=== PATIENT | male | born 1980 | race Caucasian/White ===

== ENCOUNTER 2018-10-26 16:36 | Outpatient (CLI) | payer OTHER ==
--- NOTE | 2018-10-27 10:38 | XRAY Report ---
Reason: L HEEL PAIN Procedure Date: 10/26/2018 Accession Number: [id number] / [id number] Procedure: XR - Foot 3 View LT CPT Code: FULL RESULT: EXAM: LEFT FOOT RADIOGRAPHY EXAM DATE: 10/26/2018 04:53 PM. CLINICAL HISTORY: Heel pain since a fall 3 weeks ago. COMPARISON: None. TECHNIQUE: 3 views. FINDINGS: Bones: Evidence of a nondisplaced fracture involving the plantar aspect of the posterior calcaneus. Joints: Normal. No subluxations. Soft Tissues: Normal. No soft tissue swelling. IMPRESSION: Evidence of a nondisplaced fracture involving the plantar aspect of the posterior calcaneus. RADIA
== END 2018-10-26 16:37 | disposition home or self-care (01) ==
LOC: DI 16:36
PROVIDERS: ATTEND Internal Medicine
DX: S92.002A Unspecified fracture of left calcaneus, initial encounter for closed fracture (principal)

== ENCOUNTER 2020-01-15 19:13 | Outpatient (CLI) | payer OTHER ==
--- NOTE | 2020-01-15 19:55 | XRAY Report ---
PROCEDURE: Foot 3 View LT INDICATIONS: L FOOT PX, DORSAL ASPECT TECHNIQUE: 3 views of the foot were acquired. COMPARISON: None FINDINGS: Bones: No fractures or dislocations. No suspicious bony lesions. Soft tissues: No tibiotalar joint effusion. Achilles tendon appears normal. IMPRESSION: No acute left foot fracture or dislocation. Reviewed by: Wes Ricks MD on 01/15/2020 7:53 PM PST Approved by: Wes Ricks MD on 01/15/2020 7:53 PM PST Station ID: [id number]
== END 2020-01-15 19:14 | disposition home or self-care (01) ==
LOC: DI 19:13
PROVIDERS: ATTEND Internal Medicine
DX: M79.672 Pain in left foot (principal)

== ENCOUNTER 2022-07-19 14:56 | Outpatient (CLI) | payer OTHER ==
--- NOTE | 2022-07-19 16:58 | XRAY Report ---
PROCEDURE: Ribs w/PA Chest RT INDICATIONS: RIB PAIN TECHNIQUE: 2 views of the right ribs were acquired, along with a single view chest. COMPARISON: None. FINDINGS: Surgical changes and devices: None. Bones and chest wall: No fractures or dislocations. No suspicious bony lesions. Overlying soft tis sues appear unremarkable. Lungs and pleura: No pleural effusions or pneumothorax. Lungs appear clear. Mediastinum: Mediastinal contours appear normal. Heart size is normal. IMPRESSION: No acute fracture. No osseous lesion. If symptoms and/or clinical suspicion for pathology continue, f urther assessment with repeat plain films, or advanced imaging (e.g., CT, MRI, or bone scan) is recom mended for further assessment. Reviewed by: Nicola Galvan MD on 07/19/2022 4:56 PM PDT Approved by: Nicola Galvan MD on 07/19/2022 4:56 PM PDT Station ID: [id number]
== END 2022-07-19 14:57 | disposition home or self-care (01) ==
LOC: DI 14:56
PROVIDERS: ATTEND Internal Medicine
DX: R07.81 Pleurodynia (principal)

== ENCOUNTER 2023-05-02 08:00 | Outpatient (CLI) | payer OTHER ==
--- NOTE | 2023-05-02 17:59 | XRAY Report ---
PROCEDURE: Hand 3 View RT INDICATIONS: RIGHT HAND PAIN TECHNIQUE: 3 views of the hand(s) acquired. COMPARISON: None. FINDINGS: Bones: Age indeterminate deformity involving dorsal aspect of third distal phalangeal base is seen. No other fracture or dislocation. Joint spaces are fairly well-preserved. No gross bony erosive peterson es are seen. No suspicious bony lesions. Soft tissues: No suspicious soft tissue calcifications or masses. IMPRESSION: Age-indeterminate deformity involving dorsal aspect of third distal phalangeal base suggest clinical correlation. No other fracture or dislocation. No gross bony erosive changes. Reviewed by: Wes Ricks MD on 05/02/2023 5:58 PM PDT Approved by: Wes Ricks MD on 05/02/2023 5:58 PM PDT Station ID: [id number]
== END 2023-05-02 23:59 | disposition home or self-care (01) ==
LOC: DI.WOS 08:00
PROVIDERS: ATTEND Physician Assistant Surgical
DX: M20.001 Unspecified deformity of right finger(s) (principal); M79.641 Pain in right hand

== ENCOUNTER 2023-05-10 17:18 | Outpatient (CLI) | payer OTHER ==
[2023-05-10 17:27] LABS: BASOPHILS # (AUTO) 0.1 10^3/uL (0.0-0.1); BASOPHILS % (AUTO) 0.8 %; EOSINOPHILS # (AUTO) 0.1 10^3/uL (0.0-0.7); EOSINOPHILS % (AUTO) 1.3 %; HCT - HEMATOCRIT 43.2 % (42.0-52.0); HGB - HEMOGLOBIN 14.9 g/dL (14.0-18.0); LYMPHOCYTES # (AUTO) 2.7 10^3/uL (1.5-3.5); LYMPHOCYTES % (AUTO) 29.3 %; MEAN CORPUSCULAR HEMOGLOBIN 32.2 pg (27.0-31.0); MEAN CORPUSCULAR HGB CONC 34.5 g/dL (32.0-36.0); MEAN CORPUSCULAR VOLUME 93.3 fL (80.0-94.0); MEAN PLATELET VOLUME 9.1 fL (7.4-11.4); MONOCYTES # (AUTO) 0.9 10^3/uL (0.0-1.0); MONOCYTES % (AUTO) 9.8 %; NEUTROPHILS # (AUTO) 5.4 10^3/uL (1.5-6.6); NEUTROPHILS % (AUTO) 58.6 %; PLT - PLATELET COUNT 300 10^3/uL (130-450); RED BLOOD COUNT 4.63 10^6/uL (4.70-6.10); RED CELL DISTRIBUTION WIDTH 12.2 % (12.0-15.0); WHITE BLOOD COUNT 9.2 x10^3/uL (4.8-10.8)
[2023-05-10 17:29] LABS: BILIRUBIN,URINE NEGATIVE (NEGATIVE); GLUCOSE, URINE (UA) NEGATIVE (NEGATIVE); KETONES,URINE (UA) NEGATIVE (NEGATIVE); LEUKOCYTE ESTERASE, URINE NEGATIVE (NEGATIVE); NITRITE,URINE NEGATIVE (NEGATIVE); OCCULT BLOOD,URINE NEGATIVE (NEGATIVE); PH,URINE 7.5 PH (5.0-7.5); PROTEIN,URINE NEGATIVE (NEGATIVE); UROBILINOGEN,URINE 0.2 (NORMAL) E.U./dL (NORMAL)
[2023-05-10 17:30] LABS: CLARITY,URINE CLEAR (CLEAR)
[2023-05-10 17:41] LABS: ALBUMIN 4.3 g/dL (3.2-5.5); ALBUMIN/GLOBULIN RATIO 1.6 (1.0-2.2); BILIRUBIN,TOTAL 0.4 mg/dL (0.2-1.0); CALCIUM 9.6 mg/dL (8.5-10.3); CREATININE 0.9 mg/dL (0.6-1.3); POTASSIUM 3.8 mmol/L (3.5-4.5)
[2023-05-10 17:44] LABS: BACTERIA,URINE None Seen /HPF (None Seen); RBC,URINE None Seen /HPF (0-5); SQUAMOUS EPITHELIAL CELL,UR NONE SEEN (<= Few); WBC,URINE 0-3 /HPF (0-3)
== END 2023-05-10 17:19 | disposition home or self-care (01) ==
LOC: LAB 17:18
PROVIDERS: ATTEND Internal Medicine
DX: R10.31 Right lower quadrant pain (principal); R10.9 Unspecified abdominal pain
CPT/HCPCS: 36415; 80053; 81001; 85025; 87086

== ENCOUNTER 2023-05-12 16:14 | Outpatient (CLI) | payer OTHER ==
[2023-05-12] MEDS ORDERED: DIATRIZOATE MEGLU/DIATRIZO SOD 30 ML BOTTLE PO ONE (16:21)
[2023-05-12] MEDS ORDERED: iohexoL-300 100 ML VIAL ONE (16:21)
[2023-05-12] MEDS: iohexoL-300 100 ML VIAL IVP ONE (17:35)
[2023-05-12] MEDS: DIATRIZOATE MEGLU/DIATRIZO SOD 30 ML BOTTLE PO ONE (17:35)
--- NOTE | 2023-05-12 18:30 | CT Report ---
PROCEDURE: Abdomen/Pelvis W INDICATIONS: RLQ ABD PAIN CONTRAST: Omni 300 100ml TECHNIQUE: After the administration of intravenous contrast, a CT scan of the abdomen and pelvis was performed. Images were recorded and evaluated at appropriate window settings. Reformats: coronal and sagittal. F or radiation dose reduction, the following was used: automated exposure control, adjustment of mA and /or kV according to patient size. COMPARISON: None. FINDINGS: Image quality: Diagnostic. Lower chest: Unremarkable. Liver: The liver is enlarged and diffusely hypodense. No focal enhancing lesion. Gallbladder and biliary tree: The gallbladder is completely decompressed. No calcifications. No bilia ry dilatation. Spleen: No splenomegaly. Pancreas: No pancreatic ductal dilation. Adrenals: No adrenal nodule. Kidneys and ureters: Symmetric enhancement. No suspicious mass or cyst. No hydronephrosis or perineph cherie inflammation. Normal ureters without calcifications. Stomach, bowel and peritoneum: Short appendix is present. No periappendiceal inflammation. Much of th e colon is decompressed. Occasional diverticula are present. No colonic wall thickening or inflammati on. Stomach and small bowel are normal. Lymph nodes: No central or retroperitoneal adenopathy. Vessels: Patent portal vein. Normal caliber IVC and aorta. PELVIS Reproductive organs: Normal size prostate gland. Bladder: No abnormal wall thickening, accounting for underdistention. Pelvic lymph nodes: No pelvic adenopathy by size criteria. Bones: No aggressive osseous abnormality. Other: Small bilateral fat-containing inguinal hernias. IMPRESSION: Normal appendix. Hepatomegaly and moderate hepatic steatosis. Reviewed by: Justina Treadwell MD on 05/12/2023 6:29 PM PDT Approved by: Justina Treadwell MD on 05/12/2023 6:29 PM PDT Station ID: [id number]
== END 2023-05-12 16:15 | disposition home or self-care (01) ==
LOC: DI 16:14
PROVIDERS: ATTEND Internal Medicine
DX: K76.0 Fatty (change of) liver, not elsewhere classified (principal)
CPT/HCPCS: 74177; Q9963; Q9967